=== PATIENT | male | born 1980 | race Caucasian/White ===

== ENCOUNTER 2017-05-16 08:49 | Emergency (ER) | payer OTHER ==
[~2017-05-16] VITALS: Ht 160 cm; Wt 67.5 kg
[2017-05-16 08:52] VITALS: Ht 160 cm; Wt 67.5 kg
--- NOTE | 2017-05-16 09:43 | ERD ---
ER Documentation Chief Complaint Date/Time DATE: 05/16/17 TIME: 09:40 Chief Complaint CHEST PAIN X 1 MONTH HPI This is a 37-year-old male who presents to the emergency department today complaining of chest pain for the past month. Patient states that it is constant. States he does not take any medication for the pain. Denies cigarette smoking. States sometimes he has pain when he takes a deep breath. Denies any cough, fevers or chills. ROS All systems reviewed and are negative except as per history of present illness. Medications Home Meds Active Scripts Naproxen* (Naprosyn*) 500 Mg Tablet, 500 MG PO BID Y for PAIN AND/OR INFLAMMATION, #30 TAB Prov:ROBERTA FINN PA-C 05/16/17 Allergies Allergies: Coded Allergies: No Known Allergy (Unverified , 05/16/17) PMhx/Soc Medical and Surgical Hx: pt denies Medical Hx, pt denies Surgical Hx Hx Alcohol Use: Yes (Occ) Hx Substance Use: No Hx Tobacco Use: No Smoking Status: Never smoker Physical Exam Vitals Vital Signs Date Time Temp Pulse Resp B/P Pulse Ox O2 Delivery O2 Flow Rate FiO2 05/16/17 08:52 97.4 85 20 148/92 99 Physical Exam Const: NAD Head: Atraumatic Eyes: Normal Conjunctiva ENT: Normal External Ears, Nose and Mouth. Neck: Full range of motion..~ No meningismus. Resp: Clear to auscultation bilaterally. No absent breath sounds. Right- sided chest wall pain with compression. Cardio: Regular rate and rhythm, no murmurs Abd: Soft, non tender, non distended. Normal bowel sounds Skin: No petechiae or rashes Back: No midline or flank tenderness Ext: No cyanosis, or edema Neur: Awake and alert Psych: Normal Mood and Affect Results 24 hrs Current Medications Medications (Trade) Dose Ordered Sig/[place] Route PRN Reason Start Time Stop Time Status Last Admin Dose Admin Ibuprofen (Motrin) 800 mg ONCE ONCE PO 05/16/17 10:00 05/16/17 10:01 DC 05/16/17 09:44 DIAGNOSTIC IMAGING REPORT Patient: LINDA CHOW : 1980 Age: 37 Sex: M MR #: [id number] DOS: 05/16/17 0000 Ordering MD: ROBERTA FINN PA-C Location: [facility] Room/Bed: PROCEDURE: XR Chest. CLINICAL INDICATION: Right-sided chest pain for 1 month TECHNIQUE: Single frontal view of the chest was obtained COMPARISON: None FINDINGS: No pleural effusion or pneumothorax. No consolidation. Unremarkable cardiomediastinal silhouette. No acute osseous abnormality. IMPRESSION: No acute cardiopulmonary disease. RPTAT: EE Physician Carly Date Time Electronically viewed and signed by Gary Muse Physician on 05/16/2017 10 :22 GC/ CC: ROBERTA FINN PA-C Procedures/MDM This a 37-year-old male presents the emergency department today complaining of chest pain for the past month. Patient is somewhat of a poor historian and he cannot explain what makes the pain better or worse however he did say that he feels that the pain is more constant. Patient is afebrile and otherwise well- appearing. He has not had a cough however he does report some pain with deep inspiration and therefore did obtain an EKG and chest x-ray. EKG read and interpreted by Dr. Beach. Rate [address] elevation. No QT prolongation. Normal sinus rhythm. Chest x-ray shows no pleural effusion or pneumothorax. No consolidation. Low suspicion for PE, pleural effusion, pericarditis, pneumothorax. Patient has right-sided chest wall pain with compression likely musculoskeletal in nature. I do have low suspicion for acute cardiac abnormality or pulmonary cause of chest pain. Patient was given Motrin here in the emergency department. I will give him a prescription for Naprosyn and Tylenol for home. Patient does have an HMO and I have instructed him that he does need to follow- up with a primary care doctor. Patient understood At this time the patient is stable for discharge and outpatient management. Patient should follow up with their PCP in the next 1-2 days. They may return to the emergency department sooner for any persistent or worsening of symptoms. Patient understood and agreed with the plan. Departure Diagnosis: Primary Impression: Chest pain Chest pain type: unspecified Qualified Code: R07.9 - Chest pain, unspecified type Condition: ROBERTA Falcon PA-C May 16, 2017 09:43
[2017-05-16] MEDS ORDERED: IBUPROFEN 800 MG TAB PO ONE (10:00)
--- NOTE | 2017-05-16 10:23 | RADRPT ---
PROCEDURE: XR Chest. CLINICAL INDICATION: Right-sided chest pain for 1 month TECHNIQUE: Single frontal view of the chest was obtained COMPARISON: None FINDINGS: No pleural effusion or pneumothorax. No consolidation. Unremarkable cardiomediastinal silhouette. No acute osseous abnormality. IMPRESSION: No acute cardiopulmonary disease. RPTAT: EE Gary Muse Physician Date Time Electronically viewed and signed by Gary Muse Physician on 05/16/2017 10:22 /
[2017-05-16] MEDS ORDERED: NAPR-260 PO (10:41)
== END 2017-05-16 11:20 | disposition home or self-care (01) ==
LOC: FTE 08:49
DX: R07.9 Chest pain, unspecified (principal)
CPT/HCPCS: 71010; 93005